=== PATIENT | female | born 1955 | race African-American/Black ===

== ENCOUNTER 2019-02-21 03:07 | Emergency (ER) | payer BC, MEDICAID ==
[~2019-02-21] VITALS: Ht 162.6 cm; Wt 77.1 kg
[2019-02-21 04:10] VITALS: BP 162/63
[2019-02-21 04:11] LABS: Basophils # (auto) 0.1 uL; Eosinophils # (auto) 0.2 uL; Hemoglobin 13.2 g/dL (12.2-16.2); Lymphocytes # (auto) 2.5 uL; Nucleated Red Blood Cells % 0.2 %
[2019-02-21 04:14] LABS: Albumin 3.8 g/dL (3.4-5.0); Anion Gap 8 (5-15); Basophils % (auto) 0.7 % (0.0-2.0); Blood Urea Nitrogen 14 mg/dL (7-18); Calcium 8.7 mg/dL (8.5-10.1); Carbon Dioxide 24 mmol/L (21-32); Chloride 109 mmol/L (98-107); Glucose 209 mg/dL (74-106); Hematocrit 38.9 % (36.0-46.0); Lymphocytes % (auto) 32.3 % (10.0-50.0); Mean Corpuscular Hgb Conc. 33.9 g/dL (32.0-36.0); Mean Corpuscular Volume 79.7 fL (80.0-100.0); Monocytes # (auto) 0.7 uL; Monocytes % (auto) 8.7 % (0.0-12.0); Neutrophils # (auto) 4.3 uL; Neutrophils % (auto) 55.3 % (37.0-80.0); Platelet Count (auto) 296 10^3/uL (140-450); Potassium 3.2 mmol/L (3.5-5.1); Red Blood Cells 4.88 10^6/uL (4.0-5.20); Sodium 141 mmol/L (136-145); White Blood Cell 7.7 10^3/uL (4.4-10.8)
[2019-02-21] MEDS ORDERED: SODIUM CHLORIDE 0.9% 1,000 ML IV ONE (04:15)
[2019-02-21 04:16] LABS: BUN/Creatinine Ratio 17.3; GFR African American 92 mL/min; GFR Non-African American 76 mL/min
[2019-02-21 04:21] LABS: Alanine Aminotransferase 29 U/L (13-56); Alkaline Phosphatase 91 U/L (45-117); Aspartate Aminotransferase 20 U/L (15-37); Bilirubin, Total 0.5 mg/dL (0.2-1.0); Total Protein 7.9 g/dL (6.4-8.2)
[2019-02-21 05:04] LABS: Urine Bacteria FEW /hpf (None Seen); Urine Blood Negative /uL (Negative); Urine Hyaline Cast FEW /lpf (0 - 2); Urine Mucus FEW (None Seen); Urine WBC 1 /hpf (0 - 5)
[2019-02-21 05:44] LABS: Alcohol, Urine < 3.0 mg/dL (0-5); Amphetamine Screen, Urine NEGATIVE (NEGATIVE); Barbiturate Scree,Urine NEGATIVE (NEGATIVE); Benzodiazephine Screen, Urine NEGATIVE (NEGATIVE); Cannabinoid Screen, Urine NEGATIVE (NEGATIVE); Cocaine Screen, Urine NEGATIVE (NEGATIVE); Opiate Scree,Urine NEGATIVE (NEGATIVE); Phencyclidine Screen, Urine NEGATIVE (NEGATIVE)
== END 2019-02-21 06:28 | disposition home or self-care (01) ==
LOC: ER 03:12
DX: M54.42 Lumbago with sciatica, left side (principal); E11.9 Type 2 diabetes mellitus without complications; I10 Essential (primary) hypertension; Z88.6 Allergy status to analgesic agent; Z88.0 Allergy status to penicillin
CPT/HCPCS: 36415; 70450; 72131; 80053; 80307; 81001; 83880; 84484; 85025; 93005

== ENCOUNTER 2024-10-02 18:16 | Emergency (ER) | payer OTHER, MEDICAID ==
[~2024-10-02] VITALS: Ht 162.6 cm; Wt 69.0 kg
[2024-10-02 18:24] VITALS: BP 129/62; PULSE 100; RESP 16; TEMP 97.9; O2SAT 96
--- NOTE | 2024-10-02 19:43 | ED.PDOC ---
Back pain HPI HPI Comments 68-year-old female presents to ER with complaints of fall injury x1 day. Patient reports that she has been experiencing 5/10 right hip and lower lumbar back pain x 1 day S/P tripping and falling and landing on her right side onto tile in a grocery store. Denies head injury/LOC and denies use of medications for current symptoms. Patient presents to ER ambulatory on arrival, with steady gait, in no distress. Denies abdominal/pelvic pain, numbness/tingling, changes in urination/BM or any further symptoms/complaints Chief Complaint: Back Pain Time Seen by MD: 18:27 Primary Care Provider: UNK Reviewed Notes: Nurses Notes, Medications, Allergies Allergies: Coded Allergies: Codeine (Verified Allergy, Unknown, 09/23/15) Penicillins (Verified Allergy, Unknown, 09/23/15) Home Meds Active Scripts Acetaminophen (Acetaminophen) 500 Mg Tab, 500 MG PO Q4HPRN, #30 TAB 0 Refills Prov:ALESSANDRO FLOWERS 10/02/24 Information Source: Patient Mode of Arrival: Ambulatory Past Medical History PAST MEDICAL HISTORY: DM, HTN 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 Family History Family History: Family hx of HTN Social History Smoker: Non-Smoker Alcohol: Denies ETOH Use Drugs: Denies Drug Use Lives In: Home Constitutional: denies: chills, diaphoresis, fatigue, fever, malaise, sweats, weakness, others EENTM: denies: blurred vision, double vision, ear bleeding, ear discharge, ear drainage, ear pain, ear ringing, eye pain, eye redness, hearing loss, mouth pain, mouth swelling, nasal discharge, nose bleeding, nose congestion, nose pain, photophobia, tearing, throat pain, throat swelling, voice changes, others Respiratory: denies: cough, hemoptysis, orthopnea, SOB at rest, shortness of breath, SOB with excertion, stridor, wheezing, others Cardiovascular: denies: chest pain, dizzy spells, diaphoresis, Dyspnea on exertion, edema, irregular heart beat, left arm pain, lightheadedness, palpitations, PND, syncope, others Gastrointestinal: denies: abdomen distended, abdominal pain, blood streaked bowels, constipated, diarrhea, dysphagia, difficulty swallowing, hematemesis, melena, nausea, poor appetite, poor fluid intake, rectal bleeding, rectal pain, vomiting, others Genitourinary: denies: abnormal vagina bleeding, burning, dyspareunia, dysuria, flank pain, frequency, hematuria, incontinence, pain, , vagina d ischarge, urgency, others Neurological: denies: dizziness, fainting, headache, left sided numbness, left sided weakness, numbness, paresthesia, pre-existing deficit, right sided numbness, right sided weakness, seizure, speech problems, tingling, tremors, weakness, others Musculoskeletal: reports: others (As stated in HPI) Integumetry: denies: bruises, change in color, change in hair/nails, dryness, laceration, lesions, lumps, rash, wounds, others Allergic/Immunocompromised: denies: Difficulty Healing, Frequent Infections, Hives, Itching, others Hematologic/Lymphatic: denies: anemia, blood clots, easy bleeding, easy bruising, swollen glands, others Endocrine: denies: excessive hunger, excessive sweating, excessive thirst, excessive urination, flushing, intolerance to cold, intolerance to heat, unexplained weight gain, unexplained weight loss, others Psychiatric: denies: anxiety, bipolar disorder, depression, hopeless, panic disorder, schizophrenia, sleepless, suicidal, others Physical Exam General Appearance: No Apparent Distress HEENT: PERRL/EOMI Neck: Full Range of Motion, Non-Tender, Normal Respiratory: Chest Non-Tender, Lungs Clear, No Accessory Muscle Use, No Respiratory Distress, Normal Breath Sounds Cardiovascular: No Murmur, No Gallop, Regular Rate/Rhythm Breast Exam: Deferred Gastrointestinal: NOT DONE Genitalia: Deferred Pelvic: Deferred Rectal: Deferred Extremities: No calf tenderness, Normal capillary refill, Normal range of motion Musculoskeletal : Extremity Location: Back (TTP to right lower lumbar paraspinals noted. No skin changes noted), Hip (TTP to right hip noted. No internal rotation/shortening to bilateral legs noted. Pulses intact. Steady gait noted) Neurologic: Alert, mobile phone salesperson II-XII nml as Tested, No Motor Deficits, Normal Affect, Normal Mood, No Sensory Deficits Cerebellar Function: Normal Reflexes: Normal Skin: Dry, Normal Color, Warm Peripheral Pulses: 2+ Radial (R), 2+ Radial (L), 2+ Brachial (R), 2+ Brachial (L) Lymphatic: No Adenopathy Was a procedure done? Was a procedure done?: No Sedation Sedation?: No Back Pain Differential Dx Differential Diagnosis: Fracture, Other (Dislocation, laceration, neurovascular injury) X-Ray, Labs, Meds, VS Vital Signs Date Time Temp Pulse Resp B/P (MAP) Pulse Ox O2 Delivery O2 Flow Rate FiO2 10/02/24 18:24 97.9 100 16 129/62 (84) 96 97.9 PATIENT: DON ARBOLEDA ACCT: [id number] UNIT: [id number] : 1955 LOC: ER ROOM / BED: / AGE / SEX: 68 / F ADM STATUS: REG ER SERVICE 38 ORDERING PHYSICIAN: ALESSANDRO FLOWERS PROCEDURE(s): LUMB2 - LUMBAR SPINE 3 VIEW REASON: lumbar back pain ORDER NUMBER(s): [id number], ACCESSION NUMBER(s): [id number] CLINICAL INDICATION: lumbar back pain TECHNIQUE: 2 radiographic views of the lumbar spine. Comparison: None FINDINGS/IMPRESSION: There is no evidence of acute fracture or dislocation. The visualized joint space is well maintained. Grade 1 anterior spondylolisthesis at L4-5. There is no radiopaque foreign body. ATED BY: PAULINE MAAHN Jr., DO DICTATED DATE/TIME: 10/02/242038 SIGNED BY: PAULINE MAHAN Jr., SIGNED DATE/TIME: 10/02/242038 CC: PATIENT: DON ARBOLEDA ACCT: [id number] UNIT: [id number] : 1955 LOC: ER ROOM / BED: / AGE / SEX: 68 / F ADM STATUS: REG ER SERVICE 38 ORDERING PHYSICIAN: ALESSANDRO FLOWERS PROCEDURE(s): RHIP - R HIP COMPLETE XRAY REASON: right hip pain ORDER NUMBER(s): [id number], ACCESSION NUMBER(s): [id number] EXAM: XY R HIP COMPLETE XRAY CLINICAL HISTORY: right hip pain COMPARISON: None TECHNIQUE: XY R HIP COMPLETE XRAY Findings/Impression: 2 views of the right hip with frontal view of the pelvis. There is no evidence of an acute fracture, dislocation, blastic, or lytic lesions. Mild degenerative changes of the right hip. No radiopaque foreign bodies. No joint effusion or superficial soft tissue abnormalities. ATED BY: LISA LONG DO DICTATED DATE/TIME: 10/02/242044 SIGNED BY: LISA LONG DO SIGNED DATE/TIME: 10/02/242044 CC: Right hip x-ray reviewed Lumbar spine x-ray reviewed Advised on rest/no strenuous activity Advised to follow up with PCP in 1-2 days Patient verbalized understanding and agreeable with current plan of care Advised to return to ER immediately if symptoms Images Reviewed?: Images reviewed and evaluated by me Time of 1ST Reevaluation: 19:44 Reevaluation 1ST: N/A Patient Education/Counseling: Diagnosis, Treatment, Prognosis, Need For Follow Up Family Education/Counseling: No Family Present SEPSIS Sepsis Screen Date sepsis recognized/suspect: Oct 02, 2024 Time Sepsis recognized/suspect: 1826 Recent Procedure: No On Antibiotic Therapy: No Respiratory Rate >20: No Heart Rate >90: No Temp<36 C (96.8 F) or >38.3 C: No SBP <90 or MAP <65 mmHG: No New Acute Mental Status Change: No Is the patient on CPAP, BIPAP,: No Physician Orders R Hip Complete Xray (10/02/24 19:39) Lumbar Spine 3 View (10/02/24 19:39) Vital Signs Date Time Temp Pulse Resp B/P (MAP) Pulse Ox O2 Delivery O2 Flow Rate FiO2 10/02/24 18:24 97.9 100 16 129/62 (84) 96 97.9 Departure 1 Departure Time of Disposition: 20:54 Impression: Primary Impression: Contusion of right hip Qualified Codes: S70.01XA - Contusion of right hip, initial encounter Additional Impression: Lumbar strain Qualified Codes: S39.012A - Strain of muscle, fascia and tendon of lower back, initial encounter Disposition: HOME / SELF CARE / HOMELESS Condition: Stable e-Prescriptions Acetaminophen (Acetaminophen) 500 Mg Tab 500 MG PO Q4HPRN, #30 TAB 0 Refills Prov: ALESSANDRO FLOWERS 10/02/24 Discharged With: Self Critical Care Note Critical Care Time?: No Stability Stability form required: No Heart Score Heart Score: Heart Score Response (Comments) Value History N/A 0 EKG N/A 0 Age N/A 0 Risk Factors N/A 0 Troponin N/A 0 Total 0 ALESSANDRO FLOWERS Oct 02, 2024 19:43
[2024-10-02] MEDS ORDERED: ACET500T58 PO (19:55)
--- NOTE | 2024-10-02 20:42 | DVH ---
CLINICAL INDICATION: lumbar back pain TECHNIQUE: 2 radiographic views of the lumbar spine. Comparison: None FINDINGS/IMPRESSION: There is no evidence of acute fracture or dislocation. The visualized joint space is well maintained. Grade 1 anterior spondylolisthesis at L4-5. There is no radiopaque foreign body.
--- NOTE | 2024-10-02 20:47 | DVH ---
EXAM: XY R HIP COMPLETE XRAY CLINICAL HISTORY: right hip pain COMPARISON: None TECHNIQUE: XY R HIP COMPLETE XRAY Findings/Impression: 2 views of the right hip with frontal view of the pelvis. There is no evidence of an acute fracture, dislocation, blastic, or lytic lesions. Mild degenerative changes of the right hip. No radiopaque foreign bodies. No joint effusion or superficial soft tissue abnormalities.
== END 2024-10-02 21:56 | disposition home or self-care (01) ==
LOC: ER 18:16
DX: S39.012A Strain of muscle, fascia and tendon of lower back, initial encounter (principal); S70.01XA Contusion of right hip, initial encounter; E11.9 Type 2 diabetes mellitus without complications; I10 Essential (primary) hypertension; Z98.890 Other specified postprocedural states; Z88.5 Allergy status to narcotic agent; Z88.0 Allergy status to penicillin; Z79.899 Other long term (current) drug therapy; W01.0XXA Fall on same level from slipping, tripping and stumbling without subsequent striking against object, initial encounter; Y93.89 Activity, other specified; Y92.512 Supermarket, store or market as the place of occurrence of the external cause; Y99.8 Other external cause status
CPT/HCPCS: 72100; 73502

== ENCOUNTER 2024-12-07 12:28 | Emergency (ER) | payer OTHER, MEDICAID ==
[~2024-12-07] VITALS: Ht 162.6 cm; Wt 70.1 kg
[~2024-12-07 12:28] MED LIST: ACET500T58 PO
[2024-12-07 13:15] VITALS: BP 151/72; PULSE 83; RESP 16; TEMP 98.3; O2SAT 98
--- NOTE | 2024-12-07 13:22 | ED.PDOC ---
Back pain HPI HPI Comments A 68 YEAR OLD FEMALE PRESENTS TO THE ED WITH COMPLAINT OF BACK PAIN . PATIENT STATES SHE HAS A HISTORY OF CHRONIC BACK PAIN AND STATES SHE HAS BEEN HAVING BACK PAIN RADIATING DOWN THE LEFT LEG FOR MANY YEARS. PATIENT STATES SHE HAS BEEN HAVING ASSOCIATED HEADACHES FOR THE LAST WEEK. PATIENT OTHERWISE STATES SHE IS SCHEDULED TO HAVE MRI THIS COMING WEEK OF HER BACK. PATIENT DENIES ANY ASSOCIATED FALL OR TRAUMA. PATIENT DENIES FEVER, CHILLS, SHORTNESS OF BREATH, CHEST PAIN, ABDOMINAL PAIN, NAUSEA, VOMITING, HEADACHE, DIFFICULTY URINATION OR OTHER COMPLAINTS. NO OTHER SYMPTOMS OR MODIFYING FACTORS AT THIS TIME. PATIENT IS ALERT, ORIENTED X 4, AND HAS STEADY GAIT. Chief Complaint: Back Pain Time Seen by MD: 13:21 Primary Care Provider: UNK Reviewed Notes: Nurses Notes, Medications, Allergies Allergies: Coded Allergies: Codeine (Verified Allergy, Unknown, 09/23/15) Penicillins (Verified Allergy, Unknown, 09/23/15) Home Meds Active Scripts Tamsulosin Hcl (Flomax) 0.4 Mg Cap, 1 CAP PO DAILY, #24 CAP Prov:JACQUELINE WEAVER 12/07/24 Acetaminophen (Acetaminophen) 500 Mg Tab, 500 MG PO Q4HPRN, #30 TAB 0 Refills Prov:ALESSANDRO FLOWERS 10/03/24 Information Source: Patient Mode of Arrival: Ambulatory Timing: Months, Came on: Gradually Duration: Since onset, Intermittent, Days Location of Back pain: (B) Lower back Radiates to: Posterior: (L) Buttocks, (L) Thigh Radiates to: Medial: (L) Buttocks, (L) Thigh Radiates to: Lateral: (L) Buttocks, (L) Thigh Severity: Moderate Prehospital treatment: None Quality: Aching, Cramping Onset: Spontaneous History of: Chronic Back Pain Modifying Factors: Movement, Twisting Associated signs and symptoms: None Past Medical History PAST MEDICAL HISTORY: DM, HTN Past Medical History (Other): CHRONIC LOW BACK PAIN 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 Family History Family History: Family hx of HTN Social History Smoker: Non-Smoker Alcohol: Denies ETOH Use Drugs: Denies Drug Use Lives In: Home Constitutional: denies: chills, diaphoresis, fatigue, fever, malaise, sweats, weakness, others EENTM: denies: blurred vision, double vision, ear bleeding, ear discharge, ear drainage, ear pain, ear ringing, eye pain, eye redness, hearing loss, mouth pain, mouth swelling, nasal discharge, nose bleeding, nose congestion, nose pain, photophobia, tearing, throat pain, throat swelling, voice changes, others Respiratory: denies: cough, hemoptysis, orthopnea, SOB at rest, shortness of breath, SOB with excertion, stridor, wheezing, others Cardiovascular: denies: chest pain, dizzy spells, diaphoresis, Dyspnea on exertion, edema, irregular heart beat, left arm pain, lightheadedness, palpitations, PND, syncope, others Gastrointestinal: denies: abdomen distended, abdominal pain, blood streaked bowels, constipated, diarrhea, dysphagia, difficulty swallowing, hematemesis, melena, nausea, poor appetite, poor fluid intake, rectal bleeding, rectal pain, vomiting, others Genitourinary: denies: abnormal vagina bleeding, burning, dyspareunia, dysuria, flank pain, frequency, hematuria, incontinence, pain, , vagina discharge, urgency, others Neurological: denies: dizziness, fainting, headache, left sided numbness, left sided weakness, numbness, paresthesia, pre-existing deficit, right sided numbness, right sided weakness, seizure, speech problems, tingling, tremors, weakness, others Musculoskeletal: reports: back pain, muscle pain; denies: gout, joint pain, hilda nt swelling, muscle stiffness, neck pain, others Integumetry: denies: bruises, change in color, change in hair/nails, dryness, laceration, lesions, lumps, rash, wounds, others Allergic/Immunocompromised: denies: Difficulty Healing, Frequent Infections, Hives, Itching, others Hematologic/Lymphatic: denies: anemia, blood clots, easy bleeding, easy bruising, swollen glands, others Endocrine: denies: excessive hunger, excessive sweating, excessive thirst, excessive urination, flushing, intolerance to cold, intolerance to heat, unexplained weight gain, unexplained weight loss, others Psychiatric: denies: anxiety, bipolar disorder, depression, hopeless, panic disorder, schizophrenia, sleepless, suicidal, others All Other Systems: Reviewed and Negative Physical Exam General Appearance: No Apparent Distress, Normal HEENT: Normal ENT Inspection, PERRL/EOMI, Pharynx Normal, TMs Normal Neck: Full Range of Motion, Non-Tender, Normal, Normal Inspection Respiratory: Chest Non-Tender, Lungs Clear, No Accessory Muscle Use, No Respiratory Distress, Normal Breath Sounds Cardiovascular: No Edema, No JVD, No Murmur, No Gallop, Normal Peripheral Pulses, Regular Rate/Rhythm Breast Exam: Deferred Gastrointestinal: No Organomegaly, Non Tender, No Pulsatile Mass, Normal Bowel Sounds, Soft Genitalia: Deferred Pelvic: Deferred Rectal: Deferred Extremities: No calf tenderness, Normal capillary refill, Normal inspection, Normal range of motion, Non-tender, No pedal edema Musculoskeletal : Location: Bilateral Extremity Location: Back Apperance: Tenderness: Moderate (TENDERNESS AND MUSCLE SPASM ON LOW BACK, NO BONY TENDERNESS, SWELLING AND DEFORMITY. ) Neurologic: Alert, commercial maintenance technician II-XII nml as Tested, No Motor Deficits, Normal Affect, Normal Mood, No Sensory Deficits Cerebellar Function: Normal Reflexes: Normal Skin: Dry, Normal Color, Warm Peripheral Pulses: 2+ carotid (R), 2+ carotid (L), 2+ dorsalis pedis (R), 2+ dorsalis pedis (L) Lymphatic: No Adenopathy Was a procedure done? Was a procedure done?: No Back Pain Differential Dx Differential Diagnosis: DJD, Musculoskeletal Pain, Strain Other Differential Diagnosis LUMBAR RADICULOPATHY SCIATICA X-Ray, Labs, Meds, VS Vital Signs Date Time Temp Pulse Resp B/P (MAP) Pulse Ox O2 Delivery O2 Flow Rate FiO2 12/07/24 12:37 98.7 86 16 140/79 99 98.7 PATIENT: KENDRICK ARBOLEDA: [id number]: [id number] : 1955 LOC: ER ROOM / BED: / AGE / SEX: 68 / F ADM STATUS: REG ER SERVICE 1321 ORDERING PHYSICIAN: JACQUELINE WEAVER PROCEDURE(s): LS2CT - LS SPINE WO CONTRAST REASON: LOWER BACK PAIN TO LEFT LOWER LEG ORDER NUMBER(s): [id number], ACCESSION NUMBER(s): [id number] CLINICAL INFORMATION: Low-back pain radiating to the left leg. TECHNIQUE: Axial CT images of the lumbar spine were obtained without IV contrast. Coronal and sagittal reformatted images were obtained, reviewed, and stored. One or more of the following dose reduction techniques were used: Automated exposure control. Adjustment of mA and/or kV according to patient size. CTDIvol = 28.58 mGy DLP = 28.58 mGy-cm COMPARISON: XY LUMBAR SPINE 3 VIEW on DOS: 10/02/24, MR LUMBAR SPINE WO on DOS: 08/08/24, XR LUMBAR SPINE 2-3 VIEW on DOS: 05/17/24 FINDINGS: Mild grade 1 anterolisthesis of L4 on L5. Vertebral body heights are maintained. Posterior elements are intact. No acute fracture. Paraspinal soft tissues are unremarkable. There are bilateral renal calculi, with the largest at the inferior pole of the left kidney measuring up to 5 mm. Lumbar disc levels: L1-L2: No significant disc/facet abnormality. No significant spinal canal or neural foraminal stenosis. L2-L3: Minimal disc bulge. No significant spinal canal stenosis. No significant neural foraminal stenosis. L3-L4: Diffuse disc bulge mildly indenting the ventral aspect of the thecal sac and partially effacing the lateral recesses. No significant spinal canal stenosis. Facet hypertrophy with [id number] bilateral neural foraminal stenoses. L4-L5: Moderate disc space narrowing. There is vacuum disc disease. There is uncovering of the disc due to the anterolisthesis. No significant spinal canal stenosis. Facet hypertrophy with moderate bilateral neural foraminal stenoses. L5-S1: Vacuum disc disease. Moderate to severe disc space narrowing. Posterior disc osteophyte complex mildly indents the ventral aspect of the thecal sac without significant spinal canal stenosis. Partial effacement of the lateral recesses. Facet hypertrophy and dorsal spurring contributes to moderate to severe bilateral neural foraminal stenoses. IMPRESSION: 1. Mild grade 1 anterolisthesis of L4 on L5. 2. Degenerative disc disease and facet disease in the lumbar spine with associated spinal canal, subarticular, and neural foraminal stenoses as detailed above. If clinically indicated, MRI may be helpful to further characterize. ATED BY: CABRERA AVILA DO DICTATED DATE/TIME: 12/07/24 140 SIGNED BY: CABRERA AVILA DO SIGNED DATE/TIME: 09/13/25 1408 CC: X-Ray, Labs, Meds, VS Comment EXTERNAL MEDICAL RECORDS REVIEWED: [NONE] INDEPENDENT HISTORIANS: [NONE] SOCIAL DETERMINANTS OF HEALTH: [NONE] LABS ORDERED: NONE REVIEWED AND INTERPRETED RESULTS: NONE IMAGING ORDERED: LS SPINE WITHOUT CONTRAST TREATMENTS ORDERED: PT DECLINED PAIN MEDICATION. PROCEDURES PERFORMED: NONE CRITICAL CARE TIME: NONE I HAVE DISCUSSED THE PATIENT WITH THE ATTENDING PHYSICIAN, CALLED THE KIDNEY ANSWER HE AGREES WITH THE PATIENT'S PLAN OF CARE AND DISPOSITION. BASED ON HISTORY OF PRESENT ILLNESS, AND PHYSICAL EXAM, PATIENT WILL BE DISCHARGED HOME. PT HAS PAIN MEDICATION AT HOME. SHARED DECISION MAKING: DISCUSSED WITH PATIENT THAT THEIR WORKUP WAS NORMAL. PATIENT INSTRUCTED TO FOLLOW UP WITH PRIMARY CARE PROVIDER IN 1-2 DAYS FOR RE- EVALUATION OF SYMPTOMS. PATIENT VERBALIZES UNDERSTANDING TO RETURN TO ED FOR NEW OR WORSENING SYMPTOMS OR IF FOLLOW UP WITH PCP CANNOT BE OBTAINED. PATIENT FEELS COMFORTABLE GOING HOME AT THIS TIME. ALL QUESTIONS ADDRESSED AT TIME OF DISCHARGE. Time of 1ST Reevaluation: 15:11 Reevaluation 1ST: Improved Patient Education/Counseling: Diagnosis, Treatment, Need For Follow Up Family Education/Counseling: Diagnosis, Treatment, No Family Present Medical Screening: No EMC Exist At This Time SEPSIS Sepsis Screen Date sepsis recognized/suspect: Dec 07, 2024 Time Sepsis recognized/suspect: 1237 Recent Procedure: No On Antibiotic Therapy: No Respiratory Rate >20: No Heart Rate >90: No Temp<36 C (96.8 F) or >38.3 C: No SBP <90 or MAP <65 mmHG: No New Acute Mental Status Change: No Is the patient on CPAP, BIPAP,: No Physician Orders Ls Spine Wo Contrast (12/07/24 13:21) Vital Signs Date Time Temp Pulse Resp B/P (MAP) Pulse Ox O2 Delivery O2 Flow Rate FiO2 12/07/24 12:37 98.7 86 16 140/79 99 98.7 Departure 1 Departure Time of Disposition: 15:11 Impression: Primary Impression: Degenerative joint disease (DJD) of lumbar spine Qualified Codes: M47.816 - Spondylosis without myelopathy or radiculopathy, lumbar region Additional Impressions: Lumbar radiculopathy Bilateral renal stones Disposition: 01 HOME / SELF CARE / HOMELESS Condition: Stable Additional Instructions: FOLLOW-UP WITH PCP IN 1 TO 2 DAYS. TAKE MEDICATIONS PRESCRIBED. RETURN TO ED FOR ANY NEW OR WORSENING SYMPTOMS. e-Prescriptions Tamsulosin Hcl (Flomax) 0.4 Mg Cap 1 CAP PO DAILY, #24 CAP Prov: JACQUELINE WEAVER 12/07/24 Discharged With: Self Critical Care Note Critical Care Time?: No Stability Stability form required: No Heart Score Heart Score: Heart Score Response (Comments) Value History N/A 0 EKG N/A 0 Age N/A 0 Risk Factors N/A 0 Troponin N/A 0 Total 0 I personally scribed for JACQUELINE WEAVER ([email or web address]) on 12/07/24 at 13:22. Electronically submitted by Garcia Nelson ([employer]). I personally scribed for JACQUELINE WEAVER ([email or web address]) on 12/07/24 at 13:51. Electronically submitted by Garcia Nelson ([employer]). I personally scribed for JACQUELINE WEAVER ([email or web address]) on 12/07/24 at 14:40. Electronically submitted by Garcia Nelson ([employer]). JACQUELINE WEAVER Dec 07, 2024 13:22
--- NOTE | 2024-12-07 14:10 | DVH ---
CLINICAL INFORMATION: Low-back pain radiating to the left leg. TECHNIQUE: Axial CT images of the lumbar spine were obtained without IV contrast. Coronal and sagitt al reformatted images were obtained, reviewed, and stored. One or more of the following dose reducti on techniques were used: Automated exposure control. Adjustment of mA and/or kV according to patient size. CTDIvol = 28.58 mGy DLP = 28.58 mGy-cm COMPARISON: XY LUMBAR SPINE 3 VIEW on DOS: 10/02/24, MR LUMBAR SPINE WO on DOS: 08/08/24, XR LUMBAR SPIN E 2-3 VIEW on DOS: 05/17/24 FINDINGS: Mild grade 1 anterolisthesis of L4 on L5. Vertebral body heights are maintained. Posterior elements a re intact. No acute fracture. Paraspinal soft tissues are unremarkable. There are bilateral renal ca lculi, with the largest at the inferior pole of the left kidney measuring up to 5 mm. Lumbar disc levels: L1-L2: No significant disc/facet abnormality. No significant spinal canal or neural foraminal stenosi s. L2-L3: Minimal disc bulge. No significant spinal canal stenosis. No significant neural foraminal sten osis. L3-L4: Diffuse disc bulge mildly indenting the ventral aspect of the thecal sac and partially effacin g the lateral recesses. No significant spinal canal stenosis. Facet hypertrophy with [id number]-[id number] e bilateral neural foraminal stenoses. L4-L5: Moderate disc space narrowing. There is vacuum disc disease. There is uncovering of the disc d ue to the anterolisthesis. No significant spinal canal stenosis. Facet hypertrophy with moderate bila teral neural foraminal stenoses. L5-S1: Vacuum disc disease. Moderate to severe disc space narrowing. Posterior disc osteophyte compl ex mildly indents the ventral aspect of the thecal sac without significant spinal canal stenosis. Pa rtial effacement of the lateral recesses. Facet hypertrophy and dorsal spurring contributes to modera te to severe bilateral neural foraminal stenoses. IMPRESSION: 1. Mild grade 1 anterolisthesis of L4 on L5. 2. Degenerative disc disease and facet disease in the lumbar spine with associated spinal canal, suba rticular, and neural foraminal stenoses as detailed above. If clinically indicated, MRI may be helpfu l to further characterize.
[2024-12-07] MEDS ORDERED: TAMS-35 PO (15:07)
== END 2024-12-07 15:16 | disposition home or self-care (01) ==
LOC: ER 12:28
DX: M51.16 Intervertebral disc disorders with radiculopathy, lumbar region (principal); N20.0 Calculus of kidney; E11.9 Type 2 diabetes mellitus without complications; I10 Essential (primary) hypertension; Z88.0 Allergy status to penicillin; Z88.5 Allergy status to narcotic agent
CPT/HCPCS: 72131